=== PATIENT | male | born 1960 | race Caucasian/White ===

== ENCOUNTER 2024-03-19 14:33 | Emergency (ER) | payer SELFPAY ==
[~2024-03-19] VITALS: Ht 177.8 cm; Wt 77.3 kg
[2024-03-19 17:10] LABS: BASO # 0.1 K/mm3 (0.0-0.2); BASO % 1.1 % (0.0-2.0); EOS # 0.2 K/mm3 (0.0-0.7); EOS % 3.6 % (0.0-4.0); GRAN # 2.2 K/mm3 (1.4-6.5); GRAN % 39.3 % (42.2-75.2); HEMATOCRIT 41.4 % (42.0-52.0); HEMOGLOBIN 14.3 g/dl (13.5-18.0); LYMPH # 2.4 K/mm3 (1.2-3.4); LYMPH % 43.4 % (20.0-51.0); MEAN CELL VOLUME 91 fl (80.0-100.0); MEAN CORPUSCULAR HEMOGLOBIN 32 pg (27-31); MEAN CORPUSCULAR HGB CONC 35 g/dl (33.0-37.0); MEAN PLATELET VOLUME 10.3 fl (7.4-10.4); MONO # 0.7 K/mm3 (0.1-0.6); MONO % 12.4 % (1.7-9.3); PLATELET COUNT 103 K/mm3 (130-400); RED BLOOD COUNT 4.54 M/mm3 (4.20-5.60); REDCELL DISTRIBUTION WIDTH-CV 14.6 % (11.5-14.5)
[2024-03-19 17:20] LABS: ALANINE AMINOTRANSFERASE 44 U/L (0-55); ALBUMIN 4.2 g/dL (3.4-4.8); ALKALINE PHOSPHATASE 106 U/L (40-150); ANION GAP 13 mmol/L (7-16); AST,SGOT 65 U/L (5-34); BILIRUBIN,TOTAL 0.3 mg/dL (0.2-1.2); BLOOD UREA NITROGEN 17 mg/dL (8-26); CHLORIDE 108 mEq/L (98-107); CREATININE, serum 0.83 mg/dL (0.72-1.25); GLUCOSE 96 mg/dL (70-99); POTASSIUM 4.5 mEq/L (3.5-4.5); SODIUM 148 mEq/L (136-145); TOTAL PROTEIN 8.1 g/dl (6.2-8.1)
[2024-03-19 17:29] LABS: ALCOHOL(ethanol),MEDICAL 337 mg/dL (0-10); SALICYLATE < 5.0 mg/dL (15.0-30.0)
[2024-03-19 19:22] LABS: COLLECTION METHOD CLEAN CATCH
[2024-03-19 19:27] LABS: PH 5.5 (5.0-8.5); URINE APPEARANCE CLEAR (CLEAR/HAZY); URINE BLOOD NEGATIVE (NEGATIVE); URINE COLOR YELLOW (YELLOW); URINE GLUCOSE NEGATIVE (NEGATIVE); URINE KETONE NEGATIVE (NEGATIVE); URINE NITRATE NEGATIVE (NEGATIVE); URINE PROTEIN(semi-quant) NEGATIVE (NEGATIVE); URINE UROBILINOGEN 0.2 E.U/dL (0.2-1.0)
[2024-03-19 20:07] LABS: TRICYCLIC ANTIDEPRESS URINE NEGATIVE (NEGATIVE)
[2024-03-20 05:23] VITALS: BP 149/83; PULSE 85; TEMP 98.2
--- NOTE | 2024-03-20 11:02 | NUR ---
Per ED staff, perinatal social worker spoke with patient about transportation to home. Patient states chronic pain that limits his mobility and that he has no other transportation to get to where he is staying. Patient relayed that he was offered an Uber to his destination covered by the hospital. SW worked with patient to arrange an uber to home.
[2024-03-20] MEDS ORDERED: DESYREL 50MG50 MG PO (16:45)
== END 2024-03-20 05:23 | disposition home or self-care (01) ==
LOC: COL.ER 14:33
PROVIDERS: Physician Assistant
DX: R45.851 Suicidal ideations (principal); F10.129 Alcohol abuse with intoxication, unspecified; Y90.8 Blood alcohol level of 240 mg/100 ml or more